=== PATIENT | female | born 1975 | race Native Hawaiian/Other Pacific Islander ===

== ENCOUNTER 2019-12-22 06:15 | Observation (INO) | payer OTHER ==
[~2019-12-22] VITALS: Ht 160 cm; Wt 89.8 kg
[2019-12-22] VITALS (11 sets, daily range): BP systolic 101–145; BP diastolic 49–84; TEMP 98.1–98.8; Ht 160 cm; Wt 89.8 kg
[2019-12-22 06:50] LABS: PLATELET COUNT 316 K/uL (152-353)
[2019-12-22 07:28] LABS: SODIUM 139 mmol/L (136-145)
[2019-12-23 00:13] VITALS: BP 134/75; TEMP 98.8
[2019-12-23 05:16] VITALS: BP 133/70; TEMP 98.9
[2019-12-23 05:48] LABS: PLATELET COUNT 294 K/uL (152-353)
[2019-12-23 05:53] LABS: POTASSIUM 3.2 mmol/L (3.6-5.2)
[2019-12-23 08:00] VITALS: BP 139/77; TEMP 98.6
[2019-12-23 12:00] VITALS: BP 116/69; TEMP 97.8
[2019-12-23 20:00] VITALS: BP 165/89; TEMP 100.6
[2019-12-24 00:02] VITALS: BP 143/82; TEMP 98.6
[2019-12-24 04:00] VITALS: BP 169/93; TEMP 99.7
[2019-12-24 04:46] LABS: PLATELET COUNT 265 K/uL (152-353)
[2019-12-24 05:30] LABS: POTASSIUM 3.2 mmol/L (3.6-5.2)
[2019-12-24 08:00] VITALS: BP 130/82; TEMP 98.4
[2019-12-24 12:00] VITALS: BP 147/89; TEMP 98.8
[2019-12-24] MEDS ORDERED: PANTOPRAZOLE 40MG TA PO (18:00)
== END 2019-12-24 19:10 | disposition home or self-care (01) ==
LOC: ED 06:15 → MED/SURG 09:15
PROVIDERS: Family Medicine; Internal Medicine; ADMIT Hospitalist
PROC: 0DB68ZZ Excision of Stomach, Via Natural or Artificial Opening Endoscopic (ICD-10-PCS; principal; 2019-12-24)
DX: K29.00 Acute gastritis without bleeding (principal); K80.80 Other cholelithiasis without obstruction; K22.4 Dyskinesia of esophagus; A59.01 Trichomonal vulvovaginitis
CPT/HCPCS: 36415; 80053; 80307; 81000; 82150; 82550; 83690; 83735; 84484; 85027; 85379; 93005; 94760; 96374; 99220; 99284; G0378; J0744; J1650; J2001; J2060; J2270; J2405; J2550; J2704; J3480; J3490; Q9963